=== PATIENT | female | born 1970 | race Caucasian/White ===

== ENCOUNTER 2020-07-25 09:57 | Inpatient (IN) | payer OTHER ==
[~2020-07-25] VITALS: Ht 162.6 cm; Wt 112.0 kg
[2020-07-31] MEDS ORDERED: ZANAFLEX4 MG PO (15:22)
[2020-07-31] MEDS ORDERED: TRAZODONE HCL150 MG PO (15:22)
[2020-07-31] MEDS ORDERED: PROMETRIUM200 MG PO (15:22)
[2020-07-31] MEDS ORDERED: BUSPAR10 MG PO (15:23)
[2020-07-31] MEDS ORDERED: GABAPENTIN300 MG PO (15:23)
[2020-07-31] MEDS ORDERED: CYMBALTA30 MG PO (15:23)
[2020-08-01] MEDS ORDERED: HYDROCODON-ACE1 EA10 PO (09:17)
--- NOTE | 2020-08-01 09:51 | NUR ---
PANS VITALS- B/P 133/80, P 67, R20, POX 99%
[2020-08-01 10:22] LABS: BILIRUBIN NEGATIVE (NEGATIVE); KETONE NEGATIVE (NEGATIVE); NITRITE NEGATIVE (NEGATIVE); UROBILINOGEN NORMAL mg/dL (< 2)
[2020-08-01 10:27] LABS: EPITHELIAL CELLS 0-5 /hpf (0-5); WHITE CELLS - URINE 0-5 HPF (0-4)
[2020-08-01 10:28] LABS: BACTERIA FEW HPF (NONE SEEN)
[2020-08-01 10:31] LABS: BASOPHILS 0.5 % (0-2); EOSINOPHILS 3.7 % (0-7); HEMATOCRIT 42.5 % (36.0-48.0); HEMOGLOBIN 13.7 g/dL (12-16); IMMATURE GRANULOCYTES 0.6 % (0-5); LYMPHOCYTES 20.9 % (15-50); MCH 29.4 pg (26.0-34.0); MCHC 32.2 g/dL (31.0-37.0); MCV 91.2 fL (80.0-100.0); MEAN PLATELET VOLUME 9.3 fL (7.4-10.4); MONOCYTES 7.7 % (2-11); NEUTROPHILS 66.6 % (40-80); PLATELET COUNT 225 10x3/uL (130-400); RBC 4.66 10x6/uL (4.00-5.40); RDW 12.7 % (11.5-14.5); WBC 7.8 10x3/uL (4.8-10.8)
[2020-08-01 10:32] LABS: APTT 24.6 SECONDS (22.8-39.4); CALC OSMOLALITY 268 mosm/kg (275-300); CALCIUM 9.4 mg/dL (8.5-10.1); CARBON DIOXIDE 26.4 mmol/L (21.0-32.0); CHLORIDE - SERUM 103 mmol/L (98-107); CREATININE - SERUM 0.7 mg/dL (0.6-1.3); GLUCOSE 112 mg/dL (74-106); INR 0.9 (0.85-1.17); POTASSIUM - SERUM 4.5 mmol/L (3.5-5.1); PROTIME 12.1 SECONDS (11.6-15.0); SODIUM 134 mmol/L (136-145); UREA NITROGEN 12 mg/dL (7-18); eGFR NON AFRICAN AMERICAN > 90 mL/min (90-120)
[2020-08-03] MEDS ORDERED: VISTARIL50 MG PO (17:01)
[2020-08-03] MEDS ORDERED: CIPRO500 MG PO (17:02)
[2020-08-07] VITALS (13 sets, daily range): BP systolic 82–152; BP diastolic 47–557; BMI 41.3; BMI 42.5
[2020-08-07] MEDS ORDERED: VISTARIL50 MG PO (10:24)
[2020-08-07] MEDS ORDERED: MIRAPEX0.5 MG PO (10:31)
--- NOTE | 2020-08-07 12:52 | NUR ---
CAUTERY PAD PLACED ON LEFT THIGH. PLASMA BLADE USED ON SETTING 6/8. AQUAMANTIS USED ON SETTING 170. CAUTERY PAD LOT#[id number] EXP.[id number]
[2020-08-07 15:52] LABS: BILIRUBIN NEGATIVE (NEGATIVE); KETONE NEGATIVE (NEGATIVE); NITRITE NEGATIVE (NEGATIVE); UROBILINOGEN NORMAL mg/dL (< 2)
[2020-08-07 15:53] LABS: BACTERIA FEW HPF (NONE SEEN); EPITHELIAL CELLS OCC /hpf (0-5); WHITE CELLS - URINE 0-5 HPF (0-4)
--- NOTE | 2020-08-07 20:00 | NUR ---
ALERT RESTING IN BED WITH CPM IN USE C/O PAIN TO RIGHT KNEE, WILL MEDICATE SOON DUE, SEE SHIFT ASSESSMENT, CALL LIGHT IN REACH
[2020-08-08] VITALS: BP 144/94
[2020-08-08 04:00] VITALS: BP 158/95
[2020-08-08 06:48] LABS: BASOPHILS 0.2 % (0-2); HEMATOCRIT 39.3 % (36.0-48.0); HEMOGLOBIN 12.7 g/dL (12-16); IMMATURE GRANULOCYTES 0.3 % (0-5); LYMPHOCYTES 17.5 % (15-50); MCH 29.5 pg (26.0-34.0); MCHC 32.3 g/dL (31.0-37.0); MCV 91.4 fL (80.0-100.0); MEAN PLATELET VOLUME 9.3 fL (7.4-10.4); MONOCYTES 6.8 % (2-11); NEUTROPHILS 74.2 % (40-80); PLATELET COUNT 243 10x3/uL (130-400); RDW 12.9 % (11.5-14.5); WBC 8.8 10x3/uL (4.8-10.8)
[2020-08-08 07:00] LABS: ALBUMIN 3.4 g/dL (3.4-5.0); ALKALINE PHOSPHATASE 88 U/L (30-120); ALT (SGPT) 76 U/L (10-68); CALC OSMOLALITY 273 mosm/kg (275-300); CARBON DIOXIDE 27.2 mmol/L (21.0-32.0); CHLORIDE - SERUM 102 mmol/L (98-107); CREATININE - SERUM 0.8 mg/dL (0.6-1.3); GLUCOSE 129 mg/dL (74-106); POTASSIUM - SERUM 3.9 mmol/L (3.5-5.1); PROTEIN - SERUM 7.2 g/dL (6.4-8.2); SODIUM 137 mmol/L (136-145); UREA NITROGEN 8 mg/dL (7-18); eGFR NON AFRICAN AMERICAN 81 mL/min (90-120)
--- NOTE | 2020-08-08 08:10 | NUR ---
PT C/O 08/18 PAIN. PT STATES THAT SHE DID NOT SLEEP WELL AT ALL LAST NIGHT AND IS REQUESTING SOMETHING FOR ANXIETY. WILL NOTIFY
[2020-08-08 09:49] VITALS: BP 151/96
[2020-08-08 10:46] VITALS: Ht 162.6 cm; Wt 112.0 kg
--- NOTE | 2020-08-08 12:14 | NUR ---
PT RESTING IN ROOM. DR LEZAMA ORDERED JAE FOR SLEEP TONIGHT. PT DENEIS NEEDS. WCTM.
--- NOTE | 2020-08-08 14:36 | OP ---
PATIENT NAME: CONCHIS ESPINO MEDICAL RECORD: [id number] :72 [facility] ADMISSION DATE:08/07/20 SURGEON: LEE LEZAMA DO DATE OF OPERATION: 08/07/2020 PROCEDURE PERFORMED: Right total knee arthroplasty. PREOPERATIVE DIAGNOSIS: Right knee osteoarthritis. POSTOPERATIVE DIAGNOSIS: Right knee osteoarthritis. INDICATIONS: Ms. Espino is a 50-year-old female who has tried all manner of nonoperative treatment for right knee osteoarthritis. She had complete cartilage loss in the medial compartment and also in the patellofemoral portion and the trochlea. She was aware that really the best option would be a total knee replacement. She was aware of all that and aware of the risks including infection, bleeding, damage to nerves and vessels, need for further surgery, fracture, continued pain, blood loss, blood clots, and even and she signed the consent. SURGEON: Lee Lezama DO DESCRIPTION OF PROCEDURE: The patient received spinal anesthesia and was lightly sedated. She was taken to the operative suite. She was given 2 g of Ancef, 80 mg of gentamicin, and a gram of TXA. The right lower extremity was then prepped and draped in sterile fashion. A time-out was performed and everyone was in agreement with correct side, site, patient, and procedure. I then began by marking out the incision and covered in Ioban. I then made careful dissection down to the capsule and with a fresh 10 blade used a medial parapatellar approach through the capsule and then everted the patella. After removing part of the fat pad and milling it down for an implant, implant was then sized to be a 29. The holes were drilled through a guide and then the cement had been mixed and once the cement was mixed, it was placed on the tibia and on the implant and squeezed into place and held. I then took out the ACL and drilled into the intramedullary canal of the femur and set the distal femur cutting guide and cut through it. The bone was then removed. By then, the cement had dried and the patellar squeezer was removed. I then exposed the proximal tibia and cut it through a guide, removed that, and removed the menisci. A 10 extension block fit well. I then flexed up the knee and sized it to be a 6. I drilled for the holes and then I used an michlele wing, decided to go up to a 7 so there will be no notching. I then used the 7 four-in-one cutting block and cut the distal femur. I then exposed the tibia and sized it to be a size D. I then drilled the holes for the tibia and then pinned the tray into place and impacted on the femoral trial and the size of poly being 11. I removed all the trials and impacted on the tibia and the femur and put the 11 poly in with an MC bearing E poly. I squeezed it on into place and snapped it into place. I then irrigated with 10% povidone-iodine and 500 mL normal saline solution and let it sit for 3 minutes. Once it was in for 3 minutes, I irrigated out with a liter of normal saline. I then put in Jennifer and vancomycin and tobramycin powder. I then closed the capsule with #1 Vicryl in a uhdgdf-db-mkeds fashion. This was done by myself; Jeff Goodman, certified surgical orderly; and Alexia Andino, certified surgical orderly student. Kirby then closed the skin with 2-0 Vicryl in inverted interrupted fashion. A ZipLine was then placed on the skin and she was dressed with Adaptic, 4 x 4, ABD, Webril, Wally wrap; awakened; and taken to recovery in stable condition. OPERATIVE REPORT [id number] LAURACONCHIS M BLOOD LOSS: Approximately 200 mL. COMPLICATIONS: None. NTS:[id number] Voice Confirmation ID: [id number] DOCUMENT ID: [id number] LEE LEZAMA DO at 1436 CC: [id number] DICTATION DATE: 08/07/20 1345 BEEF CATTLE GRAZIER: 08/08/[address] [facility] [address] [place] [id number]
--- NOTE | 2020-08-08 18:22 | NUR ---
1400 PT RIVERA REMOVED WITH TIP INTACT. PT HAS VOIDED TWICE SINCE RIVERA REMOVAL.
--- NOTE | 2020-08-08 19:15 | NUR ---
REPORT GIVEN BY MCKENNA MADDEN
[2020-08-08 19:30] VITALS: BP 166/81
--- NOTE | 2020-08-08 20:00 | NUR ---
PT ASKING FOR BED GILBERT. SHE STATES IT HURTS TOO MUCH TO GET UP. I GAVE HER THE BEDPAN AND SHE PLACED IT HERSELF WELL TAKING IT UP. I EXPLAINED THAT SHE NEEDED TO TRY TO GET UP TO PREVENT DVT'S AND PNEUMONIA. SHE JUST C/O OF SOME PAIN AND DIDN'T RESPOND TO ME. ASSESSMENT COMPLETED. NOTED SOME LIGHT LEFT INSPIRATORY WHEEZES. EXPLAINED THAT TO PT AND ENCOURAGED USING HER IS. SHE DID DO THIS FOR ME AND SHE DOES WELL GETTING TO ALMOST 2000
--- NOTE | 2020-08-08 21:10 | NUR ---
PT WAS NOT GIVEN TRAZADONE B/C SHE TOOK AMBIEN
--- NOTE | 2020-08-08 21:40 | NUR ---
PT WAS GIVEN PAIN MEDS AND AN AMBIEN TO SLEEP.
--- NOTE | 2020-08-09 | NUR ---
DAUGHTER IN ROOM. PT IS ASLEEP.
--- NOTE | 2020-08-09 05:30 | NUR ---
ON CPM MACHINE. PT STATES THAT SHE GOT UP TO THE BATHROOM X 2 LAST NIGHT. I DID NOT SEE THIS AND SHE DID NOT CALL. HER DAUGHTER WAS IN THE ROOM
--- NOTE | 2020-08-09 07:40 | NUR ---
PT RESTING IN ROOM. CPM IN PLACE. PT IV TO LT AC IS PATENT AND INFUSING. PT VOIDING FINE SINCE NICOLE WILSON. REGIS.
[2020-08-09 07:41] LABS: BASOPHILS 0.2 % (0-2); EOSINOPHILS 3.4 % (0-7); HEMATOCRIT 37.5 % (36.0-48.0); HEMOGLOBIN 12.1 g/dL (12-16); IMMATURE GRANULOCYTES 0.5 % (0-5); LYMPHOCYTES 15.8 % (15-50); MCH 29.4 pg (26.0-34.0); MCHC 32.3 g/dL (31.0-37.0); MCV 91.2 fL (80.0-100.0); MEAN PLATELET VOLUME 9.3 fL (7.4-10.4); MONOCYTES 7.9 % (2-11); NEUTROPHILS 72.2 % (40-80); PLATELET COUNT 225 10x3/uL (130-400); RBC 4.11 10x6/uL (4.00-5.40); RDW 12.9 % (11.5-14.5); WBC 9.4 10x3/uL (4.8-10.8)
[2020-08-09 08:02] LABS: ALBUMIN 3.1 g/dL (3.4-5.0); ALKALINE PHOSPHATASE 88 U/L (30-120); ALT (SGPT) 66 U/L (10-68); BILIRUBIN - TOTAL 0.26 mg/dL (0.2-1.3); CALC OSMOLALITY 277 mosm/kg (275-300); CALCIUM 8.2 mg/dL (8.5-10.1); CARBON DIOXIDE 26.3 mmol/L (21.0-32.0); CHLORIDE - SERUM 103 mmol/L (98-107); CREATININE - SERUM 0.8 mg/dL (0.6-1.3); GLUCOSE 133 mg/dL (74-106); POTASSIUM - SERUM 3.9 mmol/L (3.5-5.1); PROTEIN - SERUM 6.3 g/dL (6.4-8.2); SODIUM 139 mmol/L (136-145); UREA NITROGEN 7 mg/dL (7-18); eGFR NON AFRICAN AMERICAN 81 mL/min (90-120)
[2020-08-09] MEDS ORDERED: ELIQUIS2.5 MG PO (08:05)
[2020-08-09] MEDS ORDERED: CIPRO500 MG PO (08:06)
[2020-08-09] MEDS ORDERED: oxyCODONE IR PO (08:06)
[2020-08-09] MEDS ORDERED: VISTARIL50 MG PO (08:06)
[2020-08-09] MEDS ORDERED: KEFLEX500 MG PO (08:09)
[2020-08-09 08:30] VITALS: BP 146/84
--- NOTE | 2020-08-09 11:27 | NUR ---
Rehab Note- Acute Inpatient Rehab prescreen order received. THe patient has [employer] insurance and will require a PreAuth prior to an inpatient acute rehab stay. Will need an OT Eval for PreAuth process. Will follow at this time and begin PreAuth process. Thank you for this referral! Lkaeshia Mullins RN Clinical Liaison, [facility] Rehab
--- NOTE | 2020-08-09 12:14 | MORECARE ---
CASE MANAGEMENT DISCHARGE SUMMARY PATIENT: CONCHIS SANCHEZ UNIT: [id number] ADM DATE: 08/07/20 AGE: 50 : 72 SEX: F ROOM/BED: D.1210 AUTHOR: TEDDY HOFFMAN PHYSICIAN: REFERRING PHYSICIAN: JENNYFER LEZAMA DO DATE OF SERVICE: 08/09/20 Discharge Plan Patient Name: CONCHIS SANCHEZ [facility] [facility] 1970 Planned Disposition: Anticipated Discharge Date: Discharge Date: Expected LOS: Initial Reviewer: [email or web address] Initial Review Date: 08/07/2020 Generated: 08/09/20 1:13 pm Patient Name: CONCHIS SANCHEZ Page 14761 at 1214 All edits/amendments must be made on the electronic document DICTATION DATE: 08/09/20 1214 LOG RAFT WORKER: RASHAD 08/09/20 1214 RPT#: [id number] DC DATE: STATUS: ADM IN [facility] [address] [place] [address] END OF REPORT
--- NOTE | 2020-08-09 12:22 | MORECARE ---
CASE MANAGEMENT DISCHARGE SUMMARY PATIENT: CONCHIS SANCHEZ UNIT: [id number] ADM DATE: 08/07/20 AGE: 50 : [birth year] SEX: F ROOM/BED: D.1210 AUTHOR: TEDDY HOFFMAN PHYSICIAN: REFERRING PHYSICIAN: JENNYFER LEZAMA DO DATE OF SERVICE: 08/09/20 Discharge Plan Patient Name: CONCHIS SANCHEZ [facility] [facility] 1970 Planned Disposition: Anticipated Discharge Date: Discharge Date: Expected LOS: Initial Reviewer: [email or web address] Initial Review Date: 08/07/2020 Generated: 08/09/20 1:21 pm DCPIA - Discharge Planning Initial Assessment Updated by [email or web address]: Bobbi Salgado on 08/09/20 12:16 pm * Is the patient Alert and Oriented? Yes * How many steps to enter\exit or inside your home? 5/0 * PCP MAJANO * Pharmacy [facility] * Preadmission Environment Home with Family * ADLs Independent * Equipment None * List name and contact numbers for known caregivers / representatives who currently or will assist patient after discharge: PAXTON SANCHEZ * Verbal permission to speak to the caregivers and representatives has been obtained from the patient. Yes * Community resources currently utilized None * Additional services required to return to the preadmission environment? Yes * Can the patient safely return to the preadmission environment? Yes * Has this patient been hospitalized within the prior 30 days at any hospital? No Last DP export: 08/09/20 11:14 a Patient Name: CONCHIS SANCHEZ Page 02120 at 1222 All edits/amendments must be made on the electronic document DICTATION DATE: 08/09/20 1222 RULING MACHINE SET UP OPERATOR: RASHAD 08/09/20 1222 RPT#: [id number] DC DATE: STATUS: ADM IN [facility] [address] [place] [address] END OF REPORT
--- NOTE | 2020-08-09 12:31 | MORECARE ---
CASE MANAGEMENT DISCHARGE SUMMARY PATIENT: CONCHIS SANCHEZ UNIT: [id number] ADM DATE: 08/07/20 AGE: 50 : 72 SEX: F ROOM/BED: D.1210 AUTHOR: YASMIN,DOC PHYSICIAN: REFERRING PHYSICIAN: JENNYFER LEZAMA DO DATE OF SERVICE: 08/09/20 Discharge Plan Patient Name: CONCHIS SANCHEZ Facility: [facility]:[place] : 1970 Planned Disposition: Anticipated Discharge Date: Discharge Date: Expected LOS: Initial Reviewer: [email or web address] Initial Review Date: 08/07/2020 Generated: 08/09/20 1:30 pm Comments DCP- Discharge Planning Updated by [email or web address]: Bobbi Salgado on 08/09/20 11:[address] Patient Name: CONCHIS SANCHEZ Admission Status: Elective Accout number: [id number] Admission Date: 08-07-2020 : 1970 Admission Diagnosis: Attending: JENNYFER LEZAMA Current LOS: 2 Anticipated DC Date: Planned Disposition: Primary Insurance: [employer] Discharge Planning Comments: CM met with patient to complete initial dc planning assessment. CM educated patient on the CM role and verbal consent given by patient to complete assessment. CM verified patient's address, phone number, and emergency contact phone numbers. Patient lives at home with her teenage children. While the patient is at the hospital her children are staying with their grandmother who lives across the street. The patient states she is still in a great deal of pain, and does not feel like she can walk good enough to go home. She has requested to have IP rehab here at [facility]. She also would like to have Home humphrey with PT afterwards with [facility]. She would also like to have a rolling walker and a shower bench with [facility]. JEFFERSON signed for IP rehab [facility], [facility], and [facility]. Transportation provider at discharge will be her son Paxton [phone]. CM will continue to follow and will assist as needed with dc plans/needs. Respite Provider: Bobbi Salgado DCPIA - Discharge Planning Initial Assessment Updated by [email or web address]: Bobbi Salgado on 08/09/20 12:16 pm * Is the patient Alert and Oriented? Yes * How many steps to enter\exit or inside your home? 5/0 * PCP MAJANO * Pharmacy [facility] * Preadmission Environment Home with Family * ADLs Independent * Equipment None * List name and contact numbers for known caregivers / representatives who currently or will assist patient after discharge: PAXTON SANCHEZ * Verbal permission to speak to the caregivers and representatives has been obtained from the patient. Yes * Community resources currently utilized None * Additional services required to return to the preadmission environment? Yes * Can the patient safely return to the preadmission environment? Yes * Has this patient been hospitalized within the prior 30 days at any hospital? No Last DP export: 08/09/20 11:22 a Patient Name: CONCHIS SANCHEZ Page [id number] at 1231 All edits/amendments must be made on the electronic document DICTATION DATE: 08/09/20 1230 RN ADVICE: RASHAD 08/09/20 1230 RPT#: [id number] DC DATE: STATUS: ADM IN [facility] [address] [place] [address] END OF REPORT
[2020-08-09 13:07] VITALS: BP 156/97
[2020-08-09 16:18] VITALS: BP 155/96
--- NOTE | 2020-08-09 22:48 | NUR ---
RECEIVED PATIENT IN BED ON CPM. AAOX3. DAUGHTER AT BEDSIDE. NO ACUTE DISTRESS NOTED. PATIENT IS ABLE TO VOICE ALL CONCERNS AND NEEDS. CALL LIGHT WITHIN REACH. WILL FOLLOW POC
[2020-08-10] VITALS (7 sets, daily range): BP systolic 134–148; BP diastolic 77–102
[2020-08-10 06:46] LABS: BASOPHILS 0.3 % (0-2); EOSINOPHILS 3.9 % (0-7); HEMATOCRIT 35.7 % (36.0-48.0); HEMOGLOBIN 11.4 g/dL (12-16); LYMPHOCYTES 18.3 % (15-50); MCH 29.1 pg (26.0-34.0); MCHC 31.9 g/dL (31.0-37.0); MCV 91.1 fL (80.0-100.0); MEAN PLATELET VOLUME 8.9 fL (7.4-10.4); MONOCYTES 5.8 % (2-11); NEUTROPHILS 70.7 % (40-80); PLATELET COUNT 222 10x3/uL (130-400); RBC 3.92 10x6/uL (4.00-5.40); RDW 12.9 % (11.5-14.5); WBC 9.3 10x3/uL (4.8-10.8)
[2020-08-10 07:11] LABS: ALBUMIN 2.9 g/dL (3.4-5.0); ALKALINE PHOSPHATASE 81 U/L (30-120); ALT (SGPT) 54 U/L (10-68); BILIRUBIN - TOTAL 0.39 mg/dL (0.2-1.3); CALC OSMOLALITY 279 mosm/kg (275-300); CALCIUM 8.6 mg/dL (8.5-10.1); CARBON DIOXIDE 24.8 mmol/L (21.0-32.0); CHLORIDE - SERUM 104 mmol/L (98-107); CREATININE - SERUM 0.8 mg/dL (0.6-1.3); GLUCOSE 152 mg/dL (74-106); POTASSIUM - SERUM 3.4 mmol/L (3.5-5.1); PROTEIN - SERUM 6.5 g/dL (6.4-8.2); SODIUM 140 mmol/L (136-145); UREA NITROGEN 8 mg/dL (7-18); eGFR NON AFRICAN AMERICAN 81 mL/min (90-120)
--- NOTE | 2020-08-10 07:29 | NUR ---
PT ASLEEP ON BACK. NO NEEDS AT THIS TIME. DAUGHTER NOT PRESENT AT THIS TIME. WCTM
--- NOTE | 2020-08-10 07:36 | NUR ---
PT ASSISTED TO BEDSIDE COMMODE.
--- NOTE | 2020-08-10 10:22 | NUR ---
Rehab Note- Spoke with RHONA with Dylan/Kemi and stated that the Auth is still pending at this time. Will continue to await determination at this time. Thank you for this referral! Lakeshia Mullins RN Clinical Liaison, [facility] Rehab
--- NOTE | 2020-08-10 10:53 | NUR ---
OT NOTE: PT DOING WELL. BED MOB WITH MIN/MOD ASSIST FOR LE MGMT. ABLE TO DOFF AND TELMA GOWN WITH SET UP; ABLE TO TELMA SLIP ON SHOES WITHOUT ASSIST, HOWEVER, EDUCATION REQUIRED FOR SAFETY PT WAS ATTEMPTING TO STAND AND SLIDE ON SHOES. AMB IN ROOM WITH WALKER AND MIN ASSIST; AMB INTO HALLWAY APPROX 80 FT WITH WALKER. FATIGUED UPON RETURN TO ROOM. WANTED TO SIT ON EOB. GOOD STATIC AND DYNAMIC SITTING BALANCE. CHRISTO RICE, OTR/L [phone]
--- NOTE | 2020-08-10 12:51 | NUR ---
Rehab Note- Received call from Sissy Martins/Dylan with auth approval for 6 day stay with clinicals to be faxed for updated review on 08/17/2020. Auth #[id number]. Notified JUAN JOSE Coleman of approval and will accept the patient today to [facility] Acute Inpatient Rehab. Thank you for this referral! Lakeshia Mullins RN Clinical Liaison, [facility] Rehab
--- NOTE | 2020-08-10 13:34 | NUR ---
PT SLEEPING. NO NEEDS AT THIS TIME. WCTM
--- NOTE | 2020-08-10 16:13 | NUR ---
IV THERAPY REMOVED FROM LEFT AC WITH TIP INTACT. IT WAS "BOTHERING" THE PATIENT.
[2020-08-10] MEDS ORDERED: AMBIEN5 MG PO (22:58)
[2020-08-10] MEDS ORDERED: COLACE100 MG PO (22:58)
--- NOTE | 2020-08-13 09:26 | MORECARE ---
CASE MANAGEMENT DISCHARGE SUMMARY PATIENT: CONCHIS SANCHEZ UNIT: [id number] ADM DATE: 08/07/20 AGE: 50 : 72 SEX: F ROOM/BED: D.1210 AUTHOR: YASMIN,TEDDY PHYSICIAN: REFERRING PHYSICIAN: JENNYFER LEZAMA DO DATE OF SERVICE: 08/13/20 Discharge Plan Patient Name: CONCHIS SANCHEZ Facility: [facility]:[place] : 1970 Planned Disposition: Anticipated Discharge Date: Discharge Date: 08/10/2020 Expected LOS: Initial Reviewer: [email or web address] Initial Review Date: 08/07/2020 Generated: 08/13/20 10:26 am Comments DCP- Discharge Planning Updated by [email or web address]: Bobbi Salgado on 08/09/20 11:[address] Patient Name: CONCHIS SANCHEZ Admission Status: Elective Accout number: [id number] Admission Date: 08-07-2020 : 1970 Admission Diagnosis: Attending: JENNYFER LEZAMA Current LOS: 2 Anticipated DC Date: Planned Disposition: Primary Insurance: [employer] Discharge Planning Comments: CM met with patient to complete initial dc planning assessment. CM educated patient on the CM role and verbal consent given by patient to complete assessment. CM verified patient's address, phone number, and emergency contact phone numbers. Patient lives at home with her teenage children. While the patient is at the hospital her children are staying with their grandmother who lives across the street. The patient states she is still in a great deal of pain, and does not feel like she can walk good enough to go home. She has requested to have IP rehab here at [facility]. She also would like to have Home humphrey with PT afterwards with [facility]. She would also like to have a rolling walker and a shower bench with [facility]. JEFFERSON signed for IP rehab [facility], [facility], and [facility]. Transportation provider at discharge will be her son Paxton [phone]. CM will continue to follow and will assist as needed with dc plans/needs. Database Coordinator: Bobbi Salgado DCPIA - Discharge Planning Initial Assessment Updated by [email or web address]: Bobbi Salgado on 08/09/20 12:16 pm * Is the patient Alert and Oriented? Yes * How many steps to enter\exit or inside your home? 5/0 * PCP MELECIO * Pharmacy [facility] * Preadmission Environment Home with Family * ADLs Independent * Equipment None * List name and contact numbers for known caregivers / representatives who currently or will assist patient after discharge: PAXTON SANCHEZ * Verbal permission to speak to the caregivers and representatives has been obtained from the patient. Yes * Community resources currently utilized None * Additional services required to return to the preadmission environment? Yes * Can the patient safely return to the preadmission environment? Yes * Has this patient been hospitalized within the prior 30 days at any hospital? No Coverage Notice Reviewer: [id number] - Bobbi Salgado Notice Issued Date-Time: 08/09/2020 11:00 Notice Type: Patient Choice Letter Notice Delivered To: Patient Relationship to Patient: Self Assistant Manager Of Operations Name: Delivery Method: HAND - Hand Delivered Indira Days: Prior Verbal Notification: Recipient Understood Notice: Yes Recipient Signature: Yes Med Rec Note Co-signed by Attending: Coverage Notice Comment: IP REHAB [facility], [facility], [facility] FOR SHWER BENCH, AND ROLLING WALKER Last DP export: 08/09/20 11:31 a Patient Name: CONCHIS SANCHEZ Page [id number] at 0926 All edits/amendments must be made on the electronic document DICTATION DATE: 08/13/20925 PRODUCT/INDUSTRY CONSULTANT: RASHAD 08/13/20925 RPT#: [id number] DC DATE:08/10/20 STATUS: DIS IN [facility] [address] [place] [address] END OF REPORT
== END 2020-08-10 21:35 | DRG 470 ==
LOC: D.SDCHOLD 08-01 10:00 → D.M3 08-07 10:00 → D.SDCHOLD 08-07 10:00 → D.M3 08-07 10:27 → D.SDCHOLD 08-07 10:30 → D.M3 08-10 21:35
PROVIDERS: Family Medicine; ADMIT Orthopaedic Surgery; ATTEND Orthopaedic Surgery
PROC: 0SRC0J9 Replacement of Right Knee Joint with Synthetic Substitute, Cemented, Open Approach (ICD-10-PCS; principal; 2020-08-07 12:15)
DX: M17.11 Unilateral primary osteoarthritis, right knee (principal); F41.8 Other specified anxiety disorders; G25.81 Restless legs syndrome; G89.29 Other chronic pain; M54.9 Dorsalgia, unspecified; Z87.891 Personal history of nicotine dependence

== ENCOUNTER 2020-08-03 16:55 | Emergency (ER) | payer OTHER ==
[~2020-08-03] VITALS: Ht 157.5 cm; Wt 109.1 kg
[~2020-08-03 16:55] MED LIST: BUSPAR10 MG PO; CYMBALTA30 MG PO; GABAPENTIN300 MG PO; HYDROCODON-ACE1 EA10 PO; PROMETRIUM200 MG PO; TRAZODONE HCL150 MG PO; ZANAFLEX4 MG PO
[2020-08-03 16:58] VITALS: Ht 157.5 cm; Wt 109.1 kg
[2020-08-03] MEDS ORDERED: VISTARIL50 MG PO (17:01)
[2020-08-03] MEDS ORDERED: CIPRO500 MG PO (17:02)
[2020-08-03 17:38] LABS: BASOPHILS 0.6 % (0-2); EOSINOPHILS 4.7 % (0-7); HEMATOCRIT 44.5 % (36.0-48.0); HEMOGLOBIN 14.5 g/dL (12-16); IMMATURE GRANULOCYTES 0.6 % (0-5); LYMPHOCYTES 23.8 % (15-50); MCH 29.6 pg (26.0-34.0); MCHC 32.6 g/dL (31.0-37.0); MCV 90.8 fL (80.0-100.0); MONOCYTES 7.7 % (2-11); NEUTROPHILS 62.6 % (40-80); PLATELET COUNT 235 10x3/uL (130-400); RDW 12.8 % (11.5-14.5)
[2020-08-03 17:46] LABS: CALC OSMOLALITY 270 mosm/kg (275-300); CALCIUM 9.4 mg/dL (8.5-10.1); CARBON DIOXIDE 24.6 mmol/L (21.0-32.0); CHLORIDE - SERUM 104 mmol/L (98-107); CREATININE - SERUM 0.8 mg/dL (0.6-1.3); GLUCOSE 123 mg/dL (74-106); POTASSIUM - SERUM 4.1 mmol/L (3.5-5.1); SODIUM 136 mmol/L (136-145); UREA NITROGEN 7 mg/dL (7-18); eGFR NON AFRICAN AMERICAN 81 mL/min (90-120)
[2020-08-03 17:48] LABS: INR 0.94 (0.85-1.17); PROTIME 12.5 SECONDS (11.6-15.0)
[2020-08-03 17:53] LABS: BILIRUBIN NEGATIVE (NEGATIVE); KETONE NEGATIVE (NEGATIVE); NITRITE NEGATIVE (NEGATIVE); UROBILINOGEN NORMAL mg/dL (< 2)
[2020-08-03 18:02] LABS: ALBUMIN 3.6 g/dL (3.4-5.0); ALKALINE PHOSPHATASE 81 U/L (30-120); ALT (SGPT) 64 U/L (10-68); BILIRUBIN - TOTAL 0.16 mg/dL (0.2-1.3); CKMB 0.7 U/L (0.0-3.6); CREATINE KINASE 91 UL (21-215); MAGNESIUM - SERUM 1.8 mg/dL (1.8-2.4); PROTEIN - SERUM 7.3 g/dL (6.4-8.2)
[2020-08-03 18:03] LABS: UDS - AMPHET NEGATIVE QUAL (NEGATIVE); UDS - BARB NEGATIVE QUAL (NEGATIVE); UDS - BENZO NEGATIVE QUAL (NEGATIVE); UDS - COCAINE NEGATIVE QUAL (NEGATIVE); UDS - OPIATE POSITIVE QUAL (NEGATIVE); UDS - PCP NEGATIVE QUAL (NEGATIVE); UDS - THC NEGATIVE QUAL (NEGATIVE)
[2020-08-03 18:07] LABS: TROPONIN-I < 0.017 ng/mL (0.000-0.060)
[2020-08-03 19:39] VITALS: BP 149/81
== END 2020-08-03 19:39 | disposition home or self-care (01) ==
LOC: D.ER 16:55
PROVIDERS: Family Medicine
DX: R07.89 Other chest pain (principal); F41.9 Anxiety disorder, unspecified

== ENCOUNTER 2020-08-10 21:50 | Inpatient (IN) | payer OTHER ==
[~2020-08-10] VITALS: Ht 162.6 cm; Wt 108.9 kg
--- NOTE | 2020-08-10 20:50 | NUR ---
PATIENT RECEIVED SITTING UP IN BED. ASSESSMENT & VITAL SIGNS DONE. ALL HS MEDICATIONS GIVEN TO PATIENT BEFORE LEAVING MED 3. MINIMAL ASSIST INTO BED FROM WHEELCHAIR. DRESSING C/D/I TO RIGHT KNEE. ZIP TIES BENEATH DRESSING. PAPERS SIGNED. ALARM ON. CALL LIGHT WITHIN REACH. WILL CONTINUE TO MONITOR.
[~2020-08-10 21:50] MED LIST changes: +CIPRO500 MG PO; +ELIQUIS2.5 MG PO; +KEFLEX500 MG PO; +MIRAPEX0.5 MG PO; +VISTARIL50 MG PO; +oxyCODONE IR PO
[2020-08-10] MEDS ORDERED: AMBIEN5 MG PO (22:58)
[2020-08-10] MEDS ORDERED: COLACE100 MG PO (22:58)
[2020-08-10 23:47] VITALS: BP 148/87; BMI 41.3
--- NOTE | 2020-08-11 00:37 | NUR ---
PATIENT USED CALL LIGHT FOR ASSIST TO BATHROOM. STANDBY ASSIST INTO & OUT OF WHEELCHAIR. STANDBY ASSIST ONTO & OFF OF COMMODE. RETURNED TO LOW BED. ALARM ON. CALL LIGHT & BEDSIDE TABLE WITHIN REACH. WILL CONTINUE TO MONITOPR.
--- NOTE | 2020-08-11 01:57 | NUR ---
PATIENT EYES CLOSED. RESPIRATIONS 18 & EVEN. BED LOW. ALARM ON. CALL LIGHT WITHIN REACH. WILL CONTINUE TO MONITOR.
[2020-08-11 06:52] LABS: BASOPHILS 0.3 % (0-2); EOSINOPHILS 4.7 % (0-7); HEMATOCRIT 37.4 % (36.0-48.0); HEMOGLOBIN 12.1 g/dL (12-16); IMMATURE GRANULOCYTES 1.5 % (0-5); LYMPHOCYTES 24.2 % (15-50); MCH 29.5 pg (26.0-34.0); MCHC 32.4 g/dL (31.0-37.0); MCV 91.2 fL (80.0-100.0); MEAN PLATELET VOLUME 9.4 fL (7.4-10.4); MONOCYTES 6.8 % (2-11); NEUTROPHILS 62.5 % (40-80); PLATELET COUNT 243 10x3/uL (130-400); RDW 12.8 % (11.5-14.5); WBC 7.2 10x3/uL (4.8-10.8)
[2020-08-11 07:35] LABS: CALC OSMOLALITY 278 mosm/kg (275-300); CALCIUM 8.8 mg/dL (8.5-10.1); CARBON DIOXIDE 27.2 mmol/L (21.0-32.0); CHLORIDE - SERUM 103 mmol/L (98-107); CREATININE - SERUM 0.7 mg/dL (0.6-1.3); GLUCOSE 128 mg/dL (74-106); POTASSIUM - SERUM 3.6 mmol/L (3.5-5.1); SODIUM 139 mmol/L (136-145); UREA NITROGEN 9 mg/dL (7-18); eGFR NON AFRICAN AMERICAN > 90 mL/min (90-120)
--- NOTE | 2020-08-11 08:53 | NUR ---
SHE IS ALERT TALKING. HER RIGHT KNEE HAS A DRESSING INTACT, CLEAN AND DRY. SHE SAID SHE HEARD A "POP" EARLY THIS MORNING WHEN SHE WAS SLEEPING. THE STOREROOM CLERK LOOKED AT IT, NO DIFFERENCE THAN IT HAS BEEN. THE CALL LIGHT IS WITHIN REACH.
[2020-08-11 09:26] VITALS: Ht 162.6 cm; Wt 108.9 kg
[2020-08-11 09:38] VITALS: BP 149/95
--- NOTE | 2020-08-11 10:40 | NUR ---
SHE STATES HER KNEE IS "OK", IT DOES NOT LOOK OR FEEL ANY DIFFERENT THAN BEFORE. SHE IS WORKING WITH THERAPY.
[2020-08-11 20:00] VITALS: BP 135/80
--- NOTE | 2020-08-11 20:30 | NUR ---
PATIENT RECEIVED SITTING UP IN BED. ASSESSMENT & VITAL SIGNS DONE. SISTER AT BEDSIDE. NO C/O PAIN OR DISTRESS AT THIS TIME. ALARM ON. CALL LIGHT WITHIN REACH. WILL CONTINUE TO MONITOR.
--- NOTE | 2020-08-12 01:33 | NUR ---
PATIENT AWAKE WATCHING TV. NO PAIN OR DISTRESS AT THIS TIME. BED LOW. ALARM ON. CALL LIGHT WITHIN REACH. WILL CONTINUE TO MONITOR.
--- NOTE | 2020-08-12 02:00 | NUR ---
PATIENT USED CALL LIGHT FOR ASSIST. PATIENT STANDBY IN & OUT OF BED INTO WHEELCHAIR. STANDBY ASSIST ON & OFF COMMODE. HANDS WASHED. RETURNED TO LOW BED. ALARM ON. CALL LIGHT WITHIN REACH. WILL CONTINUE TO MONITOR.
--- NOTE | 2020-08-12 04:12 | NUR ---
I have reviewed this patient and I concur with the Shift Assessment completed by the Licensed Practical Nurse today this shift.
--- NOTE | 2020-08-12 06:19 | NUR ---
PATIENT USED CALL LIGHT FOR ASSIT TO BATHROOM. STANDBY ASSIST INTO & OUT OF WHEELCHAIR. ON & OFF COMMODE. VOID ONLY. BED LOW. ALARM ON. CALL LIGHT WITHIN REACH. WILL CONTINUE TO MONITOR.
--- NOTE | 2020-08-12 08:42 | NUR ---
SHE IS GOING TO THE BATHROOM WITH A WHEELCHAIR. THE DRESSING TO HER RIGHT KNEE IS CLEAN, DRY, INTACT. THE CALL LIGHT IS WITHIN REACH.
[2020-08-12 09:17] VITALS: BP 126/83
--- NOTE | 2020-08-12 14:57 | NUR ---
SHE HAS BEEN ON THE CPM FOR 2 HOURS TODAY. HER SISTER IS VISITING, PRN FOR PAIN GIVEN. THE CALL LIGHT IS WITHIN REACH.
--- NOTE | 2020-08-12 15:46 | RHP ---
PATIENT: CONCHIS SANCHEZ MEDICAL RECORD: [id number] ACCOUNT: [id number] LOCATION:[place] [address] : [birth year] ADMISSION DATE: 08/10/20 REHABILITATION HISTORY AND PHYSICAL EXAMINATION POST ADMISSION PHYSICIAN EXAMINATION ADMITTING DIAGNOSIS: Right total knee replacement. HISTORY OF PRESENT ILLNESS: The patient is a 50-year-old female patient who is somewhat obese, who came in for an elective right total knee replacement secondary osteoarthritis. She underwent surgery on 08/07/2020, been having increased pain, tachycardia, hypertension, postop anemia and increased difficulty with mobility. She has been to her family practice physicians in the past and been referred to ortho. Ortho felt like surgery was indicated. She is currently monitored for pain control, tachycardia, hypertension. She has got history of cardiac problems in the past. She has had some postop anemia. She is monitored for I's and O's, monitor her bowels. She is on anticoagulation therapy, watching her blood sugars. She has got shortness of breath, debility, deconditioning, impaired mobility, gait disturbance. She is a fall risk and self-care deficits. These are all barriers to her discharge home. She is currently set up for max assist for ADLs and mod assist for mobility, using a rolling walker. She lives at home with her teenage son, was independent with her mobility prior to this. She would like to discharge home at her prior level of functioning. COMORBIDITIES: Include anxiety, osteoarthritis, status post arthroplasty. She has got restless legs, osteoarthritis, chronic back pain, depression and anxiety. Former tobacco and alcohol use. PAST MEDICAL HISTORY: Significant for restless legs, got a history of sinus problems, pneumonia, got a history of back pain, depression, anxiety, former tobacco and alcohol use. PAST SURGICAL HISTORY: Includes hernia repair. ALLERGIES: No known drug allergies. CURRENT MEDICATIONS: Include Ambien 5 mg at bedtime, she is on trazodone 50 mg at bedtime, she is on Mirapex 5 mg at bedtime, Neurontin 300 mg at bedtime, Floranex 1 cap daily, Colace 100 mg b.i.d., Keflex 500 mg b.i.d., Zanaflex 4 mg b.i.d., she is on progesterone 200 mg daily, Cymbalta 30 mg daily, BuSpar 10 mg t.i.d., Eliquis 2.5 mg b.i.d., she is on electrolyte protocol at this time and she is on OxyIR 10 mg every 4 hours p.r.n. and Vistaril as needed for anxiety. HABITS: Does have a history of tobacco and alcohol use, but none currently. FAMILY HISTORY: Noncontributory. SOCIAL HISTORY: The patient hopes to return back home and get back to her prior level of functioning. REVIEW OF SYSTEMS: GENERAL: Does complain of weakness and fatigue. Denies cold, cough, or congestion. CARDIOVASCULAR: Denies any chest pain. HISTORY AND PHYSICAL [id number] CONCHIS SANCHEZ LUNGS: Does complain of shortness of breath at times with ambulation. PHYSICAL EXAMINATION: VITAL SIGNS: Stable. She is afebrile. GENERAL: A morbidly obese female, in no distress upon exam. HEENT: Normocephalic and atraumatic. Mucosa moist. NECK: Supple. No lymphadenopathy. LUNGS: Clear in upper alberto. No wheezing, rhonchi or rales. HEART: Regular rate and rhythm. No murmurs, rubs or gallops. ABDOMEN: Soft, benign and nondistended. Positive bowel sounds times 4. EXTREMITIES: Does have normal postoperative swelling. NEUROLOGIC: She is mainly intact. LABORATORY DATA: Her white count is 7.2, her H&H of 12 and 37, and platelet count is 243. Sodium 139, potassium 3.6, BUN and creatinine of 9 and 0.7 and blood sugar is noted to be 128. ASSESSMENT: This 50-year-old female patient admitted to rehab with a working diagnosis of status post total knee replacement. The patient has potential to make improvement. We instituted the following multidisciplinary therapies including not limited to physical, occupational, respiratory, speech, nutritional services, prosthetics and orthotics. Given her complex medical condition and risk for more complications, rehabilitation services cannot be provided at a low level of care such as alf facility. PLAN: 1. Admit to [place] [facility] for inpatient therapy to include the following disciplines; A. Physical therapy to improve gait, all transfer skills and bed mobility to a modified independent level. B. Occupational therapy to improve activities of daily living. C. Case management to help with discharge planning and placement options. D. Nutrition to assist with nutritional needs. E. Rehabilitation nursing to assist in monitoring the patient's underlying medical conditions and to assist with any type of bowel or bladder management. 2. The patient's current medication and medical care will be continued. 3. Placed on standard fall precautions. 4. The patient's estimated length of stay is approximately 7-10 days. 5. We will continue on Eliquis and I will see again in the a.m. on Thursday. TRANSINT:[id number] Voice Confirmation ID: [id number] DOCUMENT ID: [id number] MACARENA notes whether there has been none or any medical/functional change since admission: - No change since prescreen. MACARENA attests patient continues to be appropriate for IRF: - Continues to be appropriate. HISTORY AND PHYSICAL [id number] CONCHIS SANCHEZ,JOSH TORRES MD at 1546 CC: [id number] DICTATION DATE: 08/11/20 1426 ACLS SPECIALIST: 08/11/20 1648 ADM IN [place] [id number] [place] [id number]
[2020-08-12 20:05] VITALS: BP 137/86
--- NOTE | 2020-08-12 20:21 | NUR ---
PATIENT RECEIVED SITTING UP IN BED. ASSESSMENT & VITAL SIGNS DONE. PATIENT STANDBY ASSIST INTO & OUT OF WHEELCHAIR. STANDBY ON & OFF COMMODE. RETURNED TO LOW BED. ALARM ON. CALL LIGHT WITHIN REACH. WILL CONTINUE TO MONITOR.
--- NOTE | 2020-08-13 02:30 | NUR ---
PATIENT USED CALL LIGHT FOR ASSIST. PATIENT STANDBY ASSIST INTO & OUT OF WHEELCHAIR. ON & OFF COMMODE. VOID ONLY. RETURNED TO LOW BED. ALARM ON. CALL LIGHT WITHIN REACH. WILL CONTINUE TO MONITOR.
--- NOTE | 2020-08-13 03:21 | NUR ---
I have reviewed this patient and I concur with the Shift Assessment completed by the Licensed Practical Nurse today this shift.
--- NOTE | 2020-08-13 04:45 | NUR ---
PATIENT USED CALL LIGHT FOR ASSIST. PATIENT STANDBY ASSIST IN & OUT OF BED USING ROLLING WALKER. VOID ONLY. RETURNED TO LOW BED. ASSIST GETTING LEGS INTO BED. ALARM ON. CALL LIGHT & BEDSIDE WITHIN REACH. WILL CONTINUE TO MONITOR.
[2020-08-13 07:15] LABS: BASOPHILS 0.6 % (0-2); HEMATOCRIT 34.6 % (36.0-48.0); HEMOGLOBIN 10.9 g/dL (12-16); IMMATURE GRANULOCYTES 2.8 % (0-5); LYMPHOCYTES 23.7 % (15-50); MCH 28.8 pg (26.0-34.0); MCHC 31.5 g/dL (31.0-37.0); MCV 91.5 fL (80.0-100.0); MONOCYTES 10.3 % (2-11); NEUTROPHILS 56.6 % (40-80); PLATELET COUNT 219 10x3/uL (130-400); RBC 3.78 10x6/uL (4.00-5.40); RDW 12.6 % (11.5-14.5); WBC 6.7 10x3/uL (4.8-10.8)
[2020-08-13 07:25] LABS: CALC OSMOLALITY 276 mosm/kg (275-300); CALCIUM 8.7 mg/dL (8.5-10.1); CARBON DIOXIDE 30.6 mmol/L (21.0-32.0); CHLORIDE - SERUM 104 mmol/L (98-107); CREATININE - SERUM 0.7 mg/dL (0.6-1.3); GLUCOSE 125 mg/dL (74-106); POTASSIUM - SERUM 3.8 mmol/L (3.5-5.1); SODIUM 138 mmol/L (136-145); UREA NITROGEN 12 mg/dL (7-18); eGFR NON AFRICAN AMERICAN > 90 mL/min (90-120)
[2020-08-13 07:40] VITALS: BP 116/75
--- NOTE | 2020-08-13 08:00 | NUR ---
PATIENT IS ALERT/ORIENT. CALL LIGHT WITHIN REACH. VOICES NO NEEDS AT THIS TIME. WILL CONTINUE WITH PLAN OF CARE
--- NOTE | 2020-08-13 10:25 | NUR ---
PATIENT IN REHAB ROOM. WORKING WITH PHYSICAL THERAPIST. DENIES ANY PAIN/DISC AT THIS TIME
--- NOTE | 2020-08-13 16:24 | NUR ---
PATIENT ADMITTED TO REHAB FROM ACUTE FLOOR. DR. MAJANO IS PATIENT PCP. SHE WOULD LIKE A WALKER FROM [employer]. HER APPOINTMENT WITH DR. LEZAMA IS 08/27/20 @ 2:00. WILL FOLLOW WITH PATIENT AND WILL ASSIST WITH NEEDS.
--- NOTE | 2020-08-13 16:28 | NUR ---
PATIENT HELPED WITH SHOWER FROM [employer]. DRESSING RIGHT LEG WET. DRESSING CHANGED.
--- NOTE | 2020-08-13 16:31 | NUR ---
SHE WOULD LIKE [facility] [place].
--- NOTE | 2020-08-13 19:18 | NUR ---
PT LYING IN BED WATCHING TV. CL IN REACH. DENIES NEEDS AT THIS TIME. A/O X4. RESP EVEN AND UNLABORED. WCTM
[2020-08-13 19:29] VITALS: BP 122/68
[2020-08-14 08:36] VITALS: BP 122/65
--- NOTE | 2020-08-14 09:25 | NUR ---
PT RESTING IN BED WITH EYES OPEN CALL LIGHT IN REACH WILL MONITER
--- NOTE | 2020-08-14 14:14 | NUR ---
Nutrition Follow-up: Diet: Regular PO intake: 100% x 3 meals yesterday, states that her appetite is "great!" Last BM: 08/14/20. Wt: 240# (08/11/20) Meds noted: probiotics. Labs noted: Glu 125(H) Recommend continue current diet. RD following.
--- NOTE | 2020-08-14 17:47 | NUR ---
PT RESTING IN BED WITH EYES OPEN CALL LIGHT IN REACH NO PROBLEMS WILL MONITER
--- NOTE | 2020-08-14 19:18 | NUR ---
PT LYING IN BED WATCHING TV. CL IN REACH. DENIES NEEDS AT THIS TIME. BED IN LOW SIDE RAILS X2. A/O X4. LUNGS CLEAR. BOWEL ACTIVE X4. DRESSING INTACT TO RIGHT KNEE. RESP EVEN AND UNLABORED. WILL CONTINUE TO MONITOR.
[2020-08-14 20:06] VITALS: BP 145/93
--- NOTE | 2020-08-15 01:25 | NUR ---
I have reviewed this patient and I concur with the Shift Assessment completed by the Licensed Practical Nurse today this shift.
[2020-08-15 07:23] VITALS: BP 132/85
--- NOTE | 2020-08-15 08:00 | NUR ---
PT RESTING IN BED WITH EYES OPEN CALL LIGHT IN REACH WILL MONITER
--- NOTE | 2020-08-15 12:00 | NUR ---
I have reviewed this patient and I concur with the Shift Assessment completed by the Licensed Practical Nurse today this shift.
--- NOTE | 2020-08-15 12:55 | NUR ---
CARE TEAM MEETING: PATIENT IS DOING WELL IN THERAPY AND WILL DC HOME ON 08/16/20. WILL CONTINUE TO FOLLOW WITH PATIENT.
--- NOTE | 2020-08-15 18:54 | NUR ---
PT RESTING IN BED WITH EYES OPEN CALL LIGHT IN REACH WILL MONITER
--- NOTE | 2020-08-15 20:00 | NUR ---
PT IN BED WATCHING TV, TOILETED, NO OTHER NEEDS NOTED, RESPIRATIONS EVEN/UNLABORED, SAFETY PRECAUTIONS IN PLACE, FLUIDS/CALL LIGHT WITHIN REACH
[2020-08-15 22:50] VITALS: BP 154/87
--- NOTE | 2020-08-15 23:40 | NUR ---
PT ASLEEP,AROUSES EASILY TO VOICE, NO IMMEDIATE NEEDS NOTED, RESPIRATIONS EVEN/UNLABORED, SAFETY PRECAUTIONS IN PLACE, FLUIDS/CALL LIGHT WITHIN REACH
[2020-08-16 07:44] VITALS: BP 146/92
--- NOTE | 2020-08-16 08:34 | NUR ---
SHE IS ALERT, GOING TO THE BATHROOM WITH A WALKER. PRN GIVEN FOR PAIN. THE CALL LIGHT IS WITHIN REACH. DRESSING TO THE RIGHT KNEE IS CLEAN, DRY, AND INTACT.
--- NOTE | 2020-08-16 09:28 | NUR ---
PATIENT DISCHARGING HOME TODAY WITH FAMILY. [facility] WILL PROVIDE THERAPY AT HOME, PER PATIENT CHOICE. NO NEW DME NEEDED AT THIS TIME. DR. MAJANO 09/03/20 @ 10:00, DR. LEZAMA 08/27/20 @ 2:00. JEFFERSON SIGNED, IMM SERVED AND EXPLAINED ONE GIVEN TO PATIENT AND ONE FILED IN CHART. COMPARE DATA REVIEWED AND PATIENT VOICED UNDERSTANDING. DISHCARGE INSTRUCTIONS FAXED TO PCP, HOME HEALTH AND REVIEWED WITH PATIENT PER PRIMARY NURSE.
--- NOTE | 2020-08-16 11:27 | NUR ---
PATIENT CLINICALS AND DC CLINICALS FAXED TO [facility] AT , AUTH. # [id number] WITH FAX CONFORMATION RECIEVED
== END 2020-08-16 12:39 | disposition home health service (06) | DRG 561 ==
LOC: D.REHAB 21:50
PROVIDERS: ADMIT Emergency Medicine; ATTEND Emergency Medicine
DX: Z47.1 Aftercare following joint replacement surgery (principal); Z96.651 Presence of right artificial knee joint; M17.11 Unilateral primary osteoarthritis, right knee; F41.9 Anxiety disorder, unspecified; G25.81 Restless legs syndrome; F41.8 Other specified anxiety disorders; Z87.891 Personal history of nicotine dependence; G89.29 Other chronic pain